=== PATIENT | male | born 1990 | race Caucasian/White ===

== ENCOUNTER → 2020-02-09 | Outpatient (CLI) | payer MEDICAID | LOC: LABNPT 09:03 | PROVIDERS: ATTEND Emergency Medicine | DX: R68.83 Chills (without fever) (principal); R19.7 Diarrhea, unspecified; R09.89 Other specified symptoms and signs involving the circulatory and respiratory systems; Z20.828 Contact with and (suspected) exposure to other viral communicable diseases | CPT/HCPCS: 87635 ==